=== PATIENT | female | born 1965 | race African-American/Black ===

== ENCOUNTER 2017-09-30 23:43 | Emergency (ER) | payer BC ==
[~2017-09-30] VITALS: Ht 165.1 cm; Wt 73.5 kg
--- NOTE | ~2017-09-30 | EKG ---
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
[~2017-09-30 23:43] MED LIST: ACETAMINOPHEN325 M1 PO; ADVAIR HFA 230M12 GM INH; AMBIEN 10 MG TA10 MG PO; ASPIRIN325 PO; CEFUROXIME250 MG PO; CLARITIN10 MG PO; DEEP SEA NASAL44 M1 NASAL; FLONASE 0.05%50 MCG NASAL; MUCINEX TA600 MG/TAB PO; PREDNISONE 20 M20 M1 PO; PREDNISONE 20 M20 MG PO; PREDNISONE50 MG PO; SEROQUEL 50 MG50 MG PO; TOPROL XL25 MG PO; VENTOLIN HFA 1818 GM INH
[2017-10-01 00:14] LABS: HEMATOCRIT 33.7 % (37.0-47.0); HEMOGLOBIN 11.5 gm/dL (12.0-15.0); MCH 31.1 pg (26.0-34.0); MCHC 34.2 g/dL (28.0-37.0); MCV 90.9 fL (80.0-100.0); RBC 3.71 mil/uL (4.20-5.00); RDW 13.8 % (10.5-14.5)
[2017-10-01] MEDS ORDERED: CLONAZEPAM 1 MG1 M1 PO (00:16)
[2017-10-01] MEDS ORDERED: FLEXERIL PO (00:16)
[2017-10-01] MEDS ORDERED: IBUPROFEN200 M1 PO (00:17)
[2017-10-01] MEDS ORDERED: GABAPENTIN 100100 MG PO (00:17)
[2017-10-01 00:41] LABS: ANION GAP 7 mmol/L (7-16); BUN 23 mg/dL (7-18); CHLORIDE 105 mmol/L (98-107); CO2 26 mmol/L (21-32); CREATININE 0.8 mg/dL (0.6-1.0); GLUCOSE 104 mg/dL (74-106); POTASSIUM 3.3 mmol/L (3.5-5.1); SODIUM 138 mmol/L (136-145)
[2017-10-01 00:50] LABS: ALBUMIN 3.6 g/dL (3.4-5.0); SGOT 17 U/L (15-37); SGPT 32 U/L (30-65); TOTAL BILIRUBIN 0.1 mg/dL (<0.1-1.0); TOTAL PROTEIN 7.1 g/dL (6.4-8.2); TROPONIN-I <0.06 ng/mL (<0.06)
[2017-10-01] MEDS ORDERED: MORPHINE SULFAT15 M3 PO (01:03)
== END 2017-10-01 01:43 | disposition home or self-care (01) ==
LOC: ER 23:43
PROVIDERS: Emergency Medicine
DX: R07.89 Other chest pain (principal); F17.210 Nicotine dependence, cigarettes, uncomplicated; J45.909 Unspecified asthma, uncomplicated; G47.30 Sleep apnea, unspecified; Z98.890 Other specified postprocedural states